=== PATIENT | female | born 1955 | race Caucasian/White ===

== ENCOUNTER 2016-06-23 15:45 | Emergency (ER) | payer SELFPAY ==
[2016-06-23 15:59] VITALS: BP 145/70; PULSE 65; TEMP 98.4; BMI 29.2
[2016-06-23] MEDS ORDERED: KETOROLAC TROMETHAMINE 60 MG/2 ML VIAL IM ONE (16:52)
[2016-06-23] MEDS ORDERED: KETOROLAC TROMETHAMINE 60 MG/2 ML VIAL ONE (16:53)
--- NOTE | 2016-06-23 16:57 | PDOC ---
History of Present Illness - General History Source: Patient Exam Limitations: No Limitations - History of Present Illness Initial Comments: 06/23/16 17:48 The patient is a 60 year old female, with significant past medical history of bilateral knee osteoarthritis, who presents today complaining of right shoulder pain x 2days. The patient states that the shoulder is stiff, warm, and that the pain is 8/10 in severity. She is also experiencing cramping in her right fingers. She has iced her shoulder and taken tylenol with relief. She notes that she usually sleeps on her right side with her arm stretched out and her head placed on her right shoulder. She was unable to sleep like this last night secondary to the pain. Denies recent falls or trauma. Denies any bruising. Denies chest pain, SOB, palpitations. Allergies: none reported <Dorie Paz - Last Filed: 06/23/16 18:19> <Swapnil Ohara - Last Filed: 06/23/16 18:24> - General Chief Complaint: Pain Stated Complaint: RT SHOULDER PAIN Time Seen by Provider: 06/23/16 16:11 Past History <Dorie Paz - Last Filed: 06/23/16 18:19> - Past Medical History Diabetes: No GI Disorders: Yes (ACID REFLUX) HTN: No Hypercholesterolemia: Yes Psychiatric Problems: Yes (ANXIETY,DEPRESSION) - Psycho/Social/Smoking Cessation Hx Anxiety: Yes Suicidal Ideation: No Smoking History: Current every day smoker Have you smoked in the past 12 months: Yes Number of Cigarettes Smoked Daily: 6 Information on smoking cessation initiated: Yes 'Breaking Loose' booklet given: 06/23/16 Hx Alcohol Use: No Drug/Substance Use Hx: No Substance Use Type: None <Swapnil Ohara - Last Filed: 06/23/16 18:24> - Past Medical History Allergies/Adverse Reactions: Allergies Allergy/AdvReac Type Severity Reaction Status Date / Time No Known Allergies Allergy Verified 06/23/16 15:47 Home Medications: Ambulatory Orders Naproxen [Naprosyn] 375 mg PO BID #14 tablet 06/23/16 Review of Systems - Review of Systems Able to Perform ROS?: Yes Comments:: 06/23/16 17:48 CONSTITUTIONAL: Absent: fever, chills, diaphoresis, generalized weakness, malaise, loss of appetite HEENT: Absent: rhinorrhea, nasal congestion, throat pain, throat swelling, difficulty swallowing, mouth swelling, ear pain, eye pain, visual Changes CARDIOVASCULAR: Absent: chest pain, syncope, palpitations, irregular heart rate, lightheadedness , peripheral edema RESPIRATORY: Absent: cough, shortness of breath, dyspnea with exertion, orthopnea, wheezing, stridor, hemoptysis GASTROINTESTINAL: Absent: abdominal pain, abdominal distension, nausea, vomiting, diarrhea, constipation, melena, hematochezia GENITOURINARY: Absent: dysuria, frequency, urgency, hesitancy, hematuria, flank pain, genital pain MUSCULOSKELETAL: Present: right shoulder pain and swelling x2 days SKIN: Absent: rash, itching, pallor HEMATOLOGIC/IMMUNOLOGIC: Absent: easy bleeding, easy bruising, lymphadenopathy, frequent infections ENDOCRINE: Absent: unexplained weight gain, unexplained weight loss, heat intolerance, cold intolerance NEUROLOGIC: Absent: headache, focal weakness or paresthesias, dizziness, unsteady gait, seizure, mental status changes, bladder or bowel incontinence PSYCHIATRIC: Absent: anxiety, depression, suicidal or homicidal ideation, hallucinations. <Dorie Paz - Last Filed: 06/23/16 18:19> *Physical Exam - Vital Signs Last Vital Signs Temp Pulse Resp BP Pulse Ox 98.4 F 65 18 145/70 98 06/23/16 15:45 06/23/16 15:45 06/23/16 15:45 06/23/16 15:45 06/23/16 15:45 - Physical Exam Comments: 06/23/16 18:19 GENERAL: Well developed, well nourished. Awake and alert. In no acute distress. HEENT: Normocephalic, atraumatic. PERRLA, EOMI. No conjunctival pallor. Sclera are non- icteric. Moist mucous membranes. Oropharynx is clear. NECK: Supple. Full ROM. No JVD. Carotid pulses 2+ and symmetric, without bruits. No thyromegaly. No lymphadenopathy. CARDIOVASCULAR: Regular rate and rhythm. No murmurs, rubs, or gallops. Distal pulses are 2+ and symmetric. PULMONARY: No evidence of respiratory distress. Lungs clear to auscultation bilaterally. No wheezing, rales or rhonchi. ABDOMINAL: Soft. Non-tender. Non-distended. No rebound or guarding. No organomegaly. Normoactive bowel sounds. MUSCULOSKELETAL: Patient indicates pain over the deltoid area, the glenohumeral joint, and the posterior capsule. No deformities of the shoulder or clavicle. No distal, sensory, motor deficits. Pulses full. Full range of motion with significant pain that develops at the 90 degree angle of abduction. Minimal pain upon flexion and extension. . SKIN: Warm and dry. Normal capillary refill. No rashes. No jaundice. NEUROLOGICAL: Alert, awake, appropriate. Cranial nerves 2-12 intact. No deficits to light touch and temperature in face, upper extremities and lower extremities. No motor deficits in the in face, upper extremities and lower extremities. Normoreflexic in the upper and lower extremities. Normal speech. Toes are downgoing bilaterally. Gait is normal without ataxia. PSYCHIATRIC: Cooperative. Good eye contact. Appropriate mood and affect. <Dorie Paz - Last Filed: 06/23/16 18:19> - Vital Signs Last Vital Signs Temp Pulse Resp BP Pulse Ox 98.4 F 65 18 145/70 98 06/23/16 15:45 06/23/16 15:45 06/23/16 15:45 06/23/16 15:45 06/23/16 15:45 <Swapnil Ohara - Last Filed: 06/23/16 18:24> ED Treatment Course - Medications Given in the ED: ED Medications Discontinued Medications Generic Name Dose Route Start Last Admin Trade Name Freq PRN Reason Stop Dose Admin Ketorolac Tromethamine 60 mg 06/23/16 16:52 06/23/16 16:55 Toradol Injection - IM 06/23/16 16:53 60 mg ONCE ONE Administration <Dorie Paz - Last Filed: 06/23/16 18:19> Medical Decision Making - Medical Decision Making 06/23/16 17:50 <Swapnil Ohara - Last Filed: 06/23/16 18:24> *DC/Admit/Observation/Transfer - Attestations Scribe Attestion: 06/23/16 17:49 Documentation prepared by MARLENY Grossman, acting as medical cash poster for Swapnil Ohara MD/. <Dorie Paz - Last Filed: 06/23/16 18:19> - Discharge Dispostion Admit: No <Swapnil Ohara - Last Filed: 06/23/16 18:24> Diagnosis at time of Disposition: Shoulder bursitis Qualifiers: Laterality: right Qualified Code(s): M75.51 - Bursitis of right shoulder - Discharge Dispostion Disposition: HOME Condition at time of disposition: Stable - Prescriptions Prescriptions: Naproxen [Naprosyn] 375 mg PO BID #14 tablet - Referrals Referrals: Rolf Whelan MD [Staff Physician] - 3 days - Patient Instructions Printed Discharge Instructions: DI for Shoulder Sprain Additional Instructions: Wear the sling for 2-3 days only, then begin gentle range of motion exercises as demonstrated. If you are not moving the shoulder for too long there is the risk of frozen shoulder with resultant disability. Dr. Whelan has seen you in the emergency room and will recheck in his office early next week. Please call for an appointment.
== END 2016-06-23 17:10 | disposition home or self-care (01) ==
LOC: FER 15:45
PROC: 3E0233Z Introduction of Anti-inflammatory into Muscle, Percutaneous Approach (ICD-10-PCS; principal; 2016-06-23)
DX: M75.51 Bursitis of right shoulder (principal); K21.9 Gastro-esophageal reflux disease without esophagitis; F41.8 Other specified anxiety disorders; F17.210 Nicotine dependence, cigarettes, uncomplicated
CPT/HCPCS: 96372; 99283-25